=== PATIENT | female | born 1965 | race Caucasian/White ===

== ENCOUNTER 2021-02-11 15:29 | Inpatient (IN) | payer SELFPAY ==
[~2021-02-11] VITALS: Ht 154.9 cm; Wt 75.8 kg
[2021-02-11 16:26] LABS: HEMOGLOBIN 14.8 gm/dl (12.3-15.3); RED BLOOD COUNT 4.99 M/UL (4.00-5.10); WHITE BLOOD COUNT 5.4 K/UL (4.5-11.0)
[2021-02-11 17:00] LABS: BUN/CREATININE RATIO 18 (0-10)
[2021-02-11] MEDS ORDERED: LISINOPRIL10 MG PO (20:20)
[2021-02-11] MEDS ORDERED: IBUPROFEN800 MG PO (20:21)
[2021-02-11] MEDS ORDERED: HYDROCHLOROTHIA25 MG PO (20:21)
[2021-02-12 07:07] LABS: HEMOGLOBIN 13.2 gm/dl (12.3-15.3); RED BLOOD COUNT 4.54 M/UL (4.00-5.10)
[2021-02-12 07:12] LABS: WHITE BLOOD COUNT 3.6 K/UL (4.5-11.0)
[2021-02-12 07:27] LABS: BUN/CREATININE RATIO 16 (0-10)
[2021-02-13 13:19] LABS: RED BLOOD COUNT 4.69 M/UL (4.00-5.10)
[2021-02-13 13:20] LABS: WHITE BLOOD COUNT 7.1 K/UL (4.5-11.0)
[2021-02-13 13:46] LABS: BUN/CREATININE RATIO 34 (0-10)
--- NOTE | 2021-02-14 01:16 | NUR ---
02/14/21 @ 00:10 - Patient moved from [id number] to [id number]. Accepted patient under my care at this time.
[2021-02-14 07:48] LABS: WHITE BLOOD COUNT 6.3 K/UL (4.5-11.0)
[2021-02-14 07:58] LABS: HEMOGLOBIN 11.9 gm/dl (12.3-15.3); RED BLOOD COUNT 4.1 M/UL (4.00-5.10)
[2021-02-14 09:05] LABS: BUN/CREATININE RATIO 38 (0-10)
[2021-02-15 04:03] LABS: HEMOGLOBIN 13.6 gm/dl (12.3-15.3); RED BLOOD COUNT 4.71 M/UL (4.00-5.10); WHITE BLOOD COUNT 7.1 K/UL (4.5-11.0)
[2021-02-15 04:52] LABS: BUN/CREATININE RATIO 38 (0-10)
[2021-02-16 06:44] LABS: RED BLOOD COUNT 4.5 M/UL (4.00-5.10)
[2021-02-16 07:11] LABS: BUN/CREATININE RATIO 42 (0-10)
[2021-02-16 07:12] LABS: WHITE BLOOD COUNT 10.4 K/UL (4.5-11.0)
--- NOTE | 2021-02-16 13:41 | NUR ---
1230 PTS DGT CALLED UPSET STATED THAT HER MOTHER HAD BEEN COMPLAINING OF BLOOD OOZING FROM IV AND THAT SHE HAD BLOOD ALL OVER HER ARM AND THAT HER BACK WAS HURTING AND SHE TOLD THE RESPIRATORY THERAPIST AND THE [facility] THAT PICKS UP THE TRAYS. I EXPLAINED TO DGT THAT I HAD LOOKED AT HER IV EARLIER AND THERE IS A SCANT AMOUNT OF BLOOD UNDER TEGADERM BUT IV FLUSHED WITHOUT BURNING SWELLING OR REDNESS AND SHE HAS IV FLUIDS GOING AT THE TIME AND THAT I WAS UNAWARE OF THE BACK PAIN, ASSURED DGT THAT I WOULD GO TAKE CARE OF THE MATTER THAT VERY MOMENT.,WENT TO PTS ROOM GAVE HER TYLENOL 650 ORDERED AND ASSESSED THE IV STILL SCANT AMOUNT OF BLOOD UNDER TEGADERM NO REDNESS OR SWELLING NOTED, IV FLUIDS INFUSING WITHOUT DIFFICULTY, OFFERED TO CHANGE TEGADERM AND MADE PT AWARE THAT WE COULD POSSIBLY PULL OUT THE IV ACCIDENTALLY PT STATED THAT SHE DOESNT WANT TO BE STUCK AGAIN THAT SHES A HARD STICK AND LONG HER IV IS WORKING FINE TO LEAVE IT ALONE, PT ASSISTED TO TURN OVER ON HER SIDE TO HELP WITH BACK PAIN REQUESTED [facility] RESPIRATORY THERAPIST [facility] [facility]
--- NOTE | 2021-02-16 22:16 | NUR ---
PT'S BP 82/48. NOTIFIED MD AND RECEIVED ORDERS. WILL CONTINUE TO MONITOR.
[2021-02-17 07:12] LABS: HEMOGLOBIN 12.6 gm/dl (12.3-15.3); RED BLOOD COUNT 4.46 M/UL (4.00-5.10); WHITE BLOOD COUNT 10.6 K/UL (4.5-11.0)
[2021-02-17 07:52] LABS: BUN/CREATININE RATIO 36 (0-10)
[2021-02-18 11:41] LABS: HEMOGLOBIN 13.8 gm/dl (12.3-15.3); RED BLOOD COUNT 4.66 M/UL (4.00-5.10); WHITE BLOOD COUNT 10.7 K/UL (4.5-11.0)
[2021-02-18 12:07] LABS: BUN/CREATININE RATIO 35 (0-10)
--- NOTE | 2021-02-19 02:57 | NUR ---
NOTIFIED MD OF BP: 89/41. PT RESTING QUIETLY, FREE OF DISTRESS. RECIEVED ORDERS. WILL CONTINUE TO MONITOR.
[2021-02-19 04:35] LABS: HEMOGLOBIN 12.7 gm/dl (12.3-15.3); RED BLOOD COUNT 4.35 M/UL (4.00-5.10); WHITE BLOOD COUNT 10.8 K/UL (4.5-11.0)
[2021-02-19 04:52] LABS: BUN/CREATININE RATIO 31 (0-10)
[2021-02-20 06:38] LABS: HEMOGLOBIN 13.4 gm/dl (12.3-15.3); RED BLOOD COUNT 4.59 M/UL (4.00-5.10); WHITE BLOOD COUNT 10.7 K/UL (4.5-11.0)
[2021-02-20 07:14] LABS: BUN/CREATININE RATIO 31 (0-10)
[2021-02-20 23:11] LABS: HEMOGLOBIN 12.7 gm/dl (12.3-15.3)
[2021-02-20 23:13] LABS: WHITE BLOOD COUNT 13.8 K/UL (4.5-11.0)
[2021-02-21 02:10] LABS: HEMOGLOBIN 12.6 gm/dl (12.3-15.3); RED BLOOD COUNT 4.27 M/UL (4.00-5.10)
[2021-02-21 02:43] LABS: BUN/CREATININE RATIO 24 (0-10)
[2021-02-22 04:26] LABS: RED BLOOD COUNT 4.41 M/UL (4.00-5.10)
[2021-02-22 04:40] LABS: WHITE BLOOD COUNT 16.5 K/UL (4.5-11.0)
[2021-02-22 04:52] LABS: BUN/CREATININE RATIO 35 (0-10)
[2021-02-23 03:38] LABS: HEMOGLOBIN 12.6 gm/dl (12.3-15.3); RED BLOOD COUNT 4.31 M/UL (4.00-5.10)
[2021-02-23 03:41] LABS: WHITE BLOOD COUNT 20.9 K/UL (4.5-11.0)
[2021-02-23 04:29] LABS: BUN/CREATININE RATIO 28 (0-10)
[2021-02-24 04:09] LABS: HEMOGLOBIN 11.9 gm/dl (12.3-15.3); RED BLOOD COUNT 4.08 M/UL (4.00-5.10)
[2021-02-24 04:33] LABS: BUN/CREATININE RATIO 36 (0-10)
[2021-02-24 04:42] LABS: WHITE BLOOD COUNT 14.6 K/UL (4.5-11.0)
[2021-02-25 05:15] LABS: HEMOGLOBIN 11.5 gm/dl (12.3-15.3); RED BLOOD COUNT 3.94 M/UL (4.00-5.10); WHITE BLOOD COUNT 14.1 K/UL (4.5-11.0)
[2021-02-25 05:55] LABS: BUN/CREATININE RATIO 38 (0-10)
[2021-02-25] MEDS ORDERED: ELIQUIS 5 MG TAB5 MG PO (13:34)
[2021-02-25] MEDS ORDERED: PROTONIX 40 MG40 M1 PO (13:34)
[2021-02-25] MEDS ORDERED: COMBIVENT RESPIM4 GM INH (13:34)
[2021-02-25] MEDS ORDERED: LEVOFLOXACIN500 MG PO (13:34)
== END 2021-02-25 15:51 | disposition home or self-care (01) | DRG 871 ==
LOC: ER1 15:29 → MED SURG 4 17:24 → CDU 17:24 → PROG CARE 17:24 → MED SURG 4 19:28 → PROG CARE 02-21 00:12
PROVIDERS: Emergency Medicine; Internal Medicine; Internal Medicine Pulmonary Disease; Physician Assistant Medical; ADMIT Internal Medicine
PROC: 5A0955Z Assistance with Respiratory Ventilation, Greater than 96 Consecutive Hours (ICD-10-PCS; principal; 2021-02-11)
PROC: 8E0ZXY6 Isolation (ICD-10-PCS; 2021-02-11)
PROC: XW033E5 Introduction of Remdesivir Anti-infective into Peripheral Vein, Percutaneous Approach, New Technology Group 5 (ICD-10-PCS; 2021-02-11)
PROC: 3E0333Z Introduction of Anti-inflammatory into Peripheral Vein, Percutaneous Approach (ICD-10-PCS; 2021-02-11)
PROC: XW033H5 Introduction of Tocilizumab into Peripheral Vein, Percutaneous Approach, New Technology Group 5 (ICD-10-PCS; 2021-02-11)
DX: A41.89 Other specified sepsis (principal); U07.1 COVID-19; J12.82 Pneumonia due to coronavirus disease 2019; J15.9 Unspecified bacterial pneumonia; J80 Acute respiratory distress syndrome; R65.21 Severe sepsis with septic shock; R04.2 Hemoptysis; I82.432 Acute embolism and thrombosis of left popliteal vein; E87.6 Hypokalemia; Z23 Encounter for immunization
CPT/HCPCS: ECHO; 36415; 36600; 71045; 80048; 80053; 80202; 81001; 82533; 82550; 82553; 82728; 82803; 83605; 83615; 83735; 83874; 83880; 84100; 84439; 84443; 84484; 85007; 85025; 85027; 85379; 85384; 85652; 85730; 86140; 87040; 93005; 93306; 93971; 94640; 94660; 94664; 94760; 96374; 97116; 97161; 99284; J0696; J1100; J1644; J1650; J1940; J2185; J2405; J3370; J7030; J7040; J7070; Q0249; U0002